=== PATIENT | male | born 1995 | race Caucasian/White ===

== ENCOUNTER 2017-11-11 11:41 | Emergency (ER) | payer SELFPAY ==
[2017-11-11 13:17] VITALS: BP 142/97; PULSE 104; RESP 20; TEMP 37.1; O2SAT 96; BMI 36.3
[2017-11-11 13:28] LABS: UTC Influenza A Antigen Negative (Negative); UTC Influenza B Antigen Negative (Negative)
--- NOTE | 2017-11-11 13:50 | HMH.EDUTC ---
[facility] [place] Disposition Clinical Impression: Cough Upper respiratory infection Qualifiers: URI type: unspecified URI Qualified Code(s): J06.9 - Acute upper respiratory infection, unspecified Disposition: Home, Self-Care Condition on Discharge: Good Instructions: Cough, Fever of Unknown Origin, DI for Nasal Congestion Additional Instructions: * Monitor Temp. Tylenol and/or Ibuprofen as needed. ER if fever is no less than 101 despite alternating Tylenol and Ibuprofen * Encourage fluids, water, Gatorade, powerade, pedialyte if /toddler/or child * Warm salt water gargles for throat irritation *Warm fluids *Sore throat lozenges *Sleep elevated *humidifier or vaporizer Lots of rest Increase fluids, water, Gatorade, powerade *Flonase 2 sprays each nostril daily but may take 2-3 days to notice improvement with it *Bromfed may cause drowsiness. Know how it effect you or your child. Before driving, caring for small children or sending your child to school *Your throat swab was sent to lab for culture. Those results area typically sent to your primary care physician. Be sure to follow up in 2-3 days if no improvement so they can review those results and treat if necessary If you dont have primary care I recommend you get one, but in the mean time you will have to return to a walk in clinic Follow up IMMEDIATELY for new or worsening of symptoms OR no noticeable improvement over the next 48-72 hours. 911 immediately for any life threatening symptoms such as chest pain or difficulty breathing Prescriptions: Azithromycin [Z-Waldo 250mg Tab] 250 mg PO UD DOSE PK #6 tab predniSONE [Prednisone 20mg Tab] 20 mg PO BID #10 tab Promethazine/Dextromethorphan [Promethazine-Dm Syrup] 5 ml PO Q4H #200 syrup Referrals: Christopher Morris MD [Primary Care Provider] - Time of Disposition: 14:04 Medical Decision Making Vital Signs: 11/11/17 13:17 Temperature 98.8 F Temperature Source Temporal Artery Scan Pulse Rate [Right] 104 H Respiratory Rate 20 Blood Pressure [Right Arm] 142/97 Blood Pressure Mean [Right Arm] 112 Blood Pressure Source [Right Arm] Automatic Cuff Blood Pressure Position [Right Arm] Sitting 02 Sat by Pulse Oximetry 96 Oxygen Delivery Method Room Air - Lab Data Lab Results 11/11/17 13:26: Influenza Type A Ag Negative, Influenza Type B Ag Negative - Dennis Inquiry Pt receiving controlled substance: No Dennis was queried for this patient: No [facility] [place] HPI - General Stated complaint: fever, side pain Mode of Arrival: Ambulatory Source of Information: Patient Limitations: No Limitations Description of Symptoms (Recalled from Triage Doc. by RN): FEVER, CONGESTION LAST NIGHT HEENT Symptoms (Recalled from RN notes): Yes Resp Symptoms (Recalled from RN notes): No Skin Symptoms (Recalled from RN notes): No MS Symptoms (Recalled from RN notes): No Functional Status (Recalled from RN notes): NA - History of Present Illness Provider Complaint: Patient state that he has had cough and congestion that has continued to get worse since yesterday and state that he is now running a fever States that he had coughed so much that he has made himself sore on his left side Onset (ago): day(s) (2) Radiation: non-radiation Severity: mild Severity scale (1-10): 2 Relieving factors: none Exacerbating factors: none Treatments prior to arrival: none - Related Data Previous Rx's Medication Instructions Recorded Azithromycin [Z-Waldo 250mg Tab] 250 mg PO UD DOSE PK #6 tab 11/11/17 Promethazine/Dextromethorphan 5 ml PO Q4H #200 syrup 11/11/17 [Promethazine-Dm Syrup] predniSONE [Prednisone 20mg 20 mg PO BID #10 tab 11/11/17 Tab] Allergies Allergy/AdvReac Type Severity Reaction Status Date / Time PENICILLIN Allergy Intermediate I-RASH Uncoded 10/27/17 14:55 - Worker's Comp Is this a Worker's Comp case?: No [facility] History - *Social History Smoking Status: Current every day smoker Tobacco Type: cigarettes Al
--- NOTE | 2017-11-11 13:55 | ED_ITS ---
[facility] [place] Disposition Clinical Impression: Cough Upper respiratory infection Qualifiers: URI type: unspecified URI Qualified Code(s): J06.9 - Acute upper respiratory infection, unspecified Disposition: Home, Self-Care Condition on Discharge: Good Instructions: Cough, Fever of Unknown Origin, DI for Nasal Congestion Additional Instructions: * Monitor Temp. Tylenol and/or Ibuprofen as needed. ER if fever is no less than 101 despite alternating Tylenol and Ibuprofen * Encourage fluids, water, Gatorade, powerade, pedialyte if /toddler/or child * Warm salt water gargles for throat irritation *Warm fluids *Sore throat lozenges *Sleep elevated *humidifier or vaporizer Lots of rest Increase fluids, water, Gatorade, powerade *Flonase 2 sprays each nostril daily but may take 2-3 days to notice improvement with it *Bromfed may cause drowsiness. Know how it effect you or your child. Before driving, caring for small children or sending your child to school *Your throat swab was sent to lab for culture. Those results area typically sent to your primary care physician. Be sure to follow up in 2-3 days if no improvement so they can review those results and treat if necessary If you don? t have primary care I recommend you get one, but in the mean time you will have to return to a walk in clinic Follow up IMMEDIATELY for new or worsening of symptoms OR no noticeable improvement over the next 48-72 hours. 911 immediately for any life threatening symptoms such as chest pain or difficulty breathing Prescriptions: Azithromycin [Z-Waldo 250mg Tab] 250 mg PO UD DOSE PK #6 tab predniSONE [Prednisone 20mg Tab] 20 mg PO BID #10 tab Promethazine/Dextromethorphan [Promethazine-Dm Syrup] 5 ml PO Q4H #200 syrup Referrals: Christopher Morris MD [Primary Care Provider] - Time of Disposition: 14:04 Medical Decision Making Vital Signs: 11/11/17 13:17 Temperature 98.8 F Temperature Source Temporal Artery Scan Pulse Rate [Right] 104 H Respiratory Rate 20 Blood Pressure [Right Arm] 142/97 Blood Pressure Mean [Right Arm] 112 Blood Pressure Source [Right Arm] Automatic Cuff Blood Pressure Position [Right Arm] Sitting 02 Sat by Pulse Oximetry 96 Oxygen Delivery Method Room Air - Lab Data Lab Results 11/11/17 13:26: Influenza Type A Ag Negative, Influenza Type B Ag Negative - Dennis Inquiry Pt receiving controlled substance: No Dennis was queried for this patient: No [facility] [place] HPI - General Stated complaint: fever, side pain Mode of Arrival: Ambulatory Source of Information: Patient Limitations: No Limitations Description of Symptoms (Recalled from Triage Doc. by RN): FEVER, CONGESTION LAST NIGHT HEENT Symptoms (Recalled from RN notes): Yes Resp Symptoms (Recalled from RN notes): No Skin Symptoms (Recalled from RN notes): No MS Symptoms (Recalled from RN notes): No Functional Status (Recalled from RN notes): NA - History of Present Illness Provider Complaint: Patient state that he has had cough and congestion that has continued to get worse since yesterday and state that he is now running a fever States that he had coughed so much that he has made himself sore on his left side Onset (ago): day(s) (2) Radiation: non-radiation Severity: mild Severity scale (1-10): 2 Relieving factors: none Exacerbating factors: none Treatments prior to arrival: none - Related Data Previous Rx's Medication Instructions Recorded
== END 2017-11-11 14:18 | disposition home or self-care (01) ==
PROVIDERS: Emergency Provider Nurse Practitioner; Family Provider Internal Medicine Adolescent Medicine; PCP Internal Medicine Adolescent Medicine
DX: J06.9 Acute upper respiratory infection, unspecified (principal); F17.210 Nicotine dependence, cigarettes, uncomplicated; Z88.0 Allergy status to penicillin
CPT/HCPCS: 87276; 87804; 99202

== ENCOUNTER 2017-11-17 19:52 | Emergency (ER) | payer SELFPAY ==
[2017-11-17 19:54] VITALS: BP 165/86; PULSE 80; RESP 16; TEMP 36.4; O2SAT 95; BMI 36.0
--- NOTE | 2017-11-17 20:05 | XR_ITS ---
XR chest 2V HISTORY: ITS.REASON: PAIN ORDERING PHYSICIAN: Riya Adams MD PATIENT AGE: 22 years COMPARISON: 09/12/2015 FINDINGS: The cardiomediastinal silhouette and pulmonary vascularity are within normal limits. Patchy density is present in the left lower lung zone not apparent on the previous exam suspicious for an area of infiltrate.. No acute bony abnormalities. IMPRESSION: Patchy density left lower lobe suspicious for an area of infiltrate
--- NOTE | 2017-11-17 20:18 | HMH.EDBACK ---
ED Disposition Clinical Impression: Thoracic back pain Qualifiers: Chronicity: acute Back pain laterality: bilateral Qualified Code(s): M54.6 - Pain in thoracic spine Disposition: Home, Self-Care Condition on Discharge: Good Instructions: Thoracic Back Pain Additional Instructions: use meds and see pcp as needed Prescriptions: predniSONE [Prednisone 20mg Tab] 20 mg PO DAILY #10 tab Referrals: Christopher Morris MD [Primary Care Provider] - - Critical Care Critical Care Time: No Attestation: On 11/17/17, the high probability of a clinically significant, sudden or life threatening deterioration of the following system(s) required my full and direct attention, intervention and personal management. The time I documented below is in addition to time spent performing reported procedures but includes the following listed in this critical care notation. Medical Decision Making - Medical Records Medical records reviewed: Yes: I reviewed the patient's medical records. Vital Signs: 11/17/17 19:54 Temperature 97.5 F L Temperature Source Oral Pulse Rate [Right Brachial] 80 Respiratory Rate 16 Blood Pressure [Right Arm] 165/86 Blood Pressure Mean [Right Arm] 112 Blood Pressure Source [Right Arm] Automatic Cuff Blood Pressure Position [Right Arm] Sitting 02 Sat by Pulse Oximetry 95 Oxygen Delivery Method Room Air - Lab Data Lab results reviewed: Yes: I reviewed the patient's lab results. Orders (Tests/Meds): ORDERS Category Date Time Status Chest XR 2 view (NOT portable) [XR chest 2V] Stat Exams 11/17/17 20:05 Taken - Radiology Data #1 Image(s): Chest Image Reviewed: Yes I reviewed the patient's radiology image Preliminary Findings: Normal/NAD - Dennis Inquiry Pt receiving controlled substance: No [facility] History I have reviewed the patient's past medical history: Yes - *Social History Smoking Status: Current every day smoker Tobacco Type: cigarettes Alcohol Intake: never - Psychiatric History Expresses thoughts of harming self/others: None Suicide Plan Description: No Plan ROS Obtained: Yes All systems reviewed & no additional complaints - Constitutional Constitutional: Denies fever(s) - Eyes Eyes: Denies change in vision - ENT Ears, Nose, Mouth, and Throat: Denies mouth lesions, Denies sore throat - Cardiovascular Cardiovascular: Denies chest pain - Respiratory Respiratory: Yes cough, No coughing up blood - Gastrointestinal Gastrointestingal: Denies: abdominal pain - Musculoskeletal Musculoskeletal: Denies joint pain, Denies joint stiffness Physical Exam - General General appearance: alert, in no apparent distress - Head Head exam: atraumatic, normocephalic - Eye Eye exam: Present: PERRL, EOMI - ENT ENT exam: Present: normal oropharynx - Neck Neck exam: Present: full ROM - Chest Chest inspection: Present: normal inspection - Respiratory Respiratory exam: Present: normal lung sounds bilaterally. Absent: respiratory distress - Cardiovascular Cardiovascular exam: Present: regular rate. Absent: systolic murmur, rubs - Abdominal Exam Abdominal exam: Present: soft - Extremities Exam Extremities exam: Present: full ROM - Back Exam Back exam: Present: full ROM. Absent: CVA tenderness (R), CVA tenderness (L) - Neurological Exam Neurological exam: Present: alert, oriented X3, CN II-XII intact - Psychiatric Psychiatric exam: Present: normal affect - Skin Skin exam: Absent: rash Back Pain HPI - General Chief Complaint: Back Pain/Injury Stated Complaint: Lungs hurt Time Seen by Provider: 11/17/17 20:18 Mode of Arrival: Ambulatory Source of Information: Patient, Relative, Medical Record Limitations: No Limitations Description of Symptoms (Recalled from ER Triage Doc. by RN): UPPER BACK PAIN FOR 2-3 WEEKS, STATES HIS LUNGS HURT - History of Present Illness HPI Narrative: pt with post thoracic pain worse with mov and deep ins
[2017-11-17 20:51] VITALS: BP 120/82; PULSE 81; RESP 18; O2SAT 100
== END 2017-11-17 20:55 | disposition home or self-care (01) ==
PROVIDERS: Emergency Provider Emergency Medicine; Family Provider Internal Medicine Adolescent Medicine; PCP Internal Medicine Adolescent Medicine
DX: M54.6 Pain in thoracic spine (principal); R07.89 Other chest pain; F17.210 Nicotine dependence, cigarettes, uncomplicated; Z88.0 Allergy status to penicillin
CPT/HCPCS: 71046; 99283

== ENCOUNTER → 2021-01-30 13:51 | Outpatient (CLI) | payer OTHER, SELFPAY ==
[2021-01-30 14:06] LABS: Chloride 110 mmol/L (98-107); Potassium 4.2 mmoL/L (3.5-5.1); Sodium 142 mmol/L (136-145)
[2021-01-30 14:08] LABS: Blood Urea Nitrogen 20 mg/dl (9-20); Estimated Glomerular Filt Rate 102 ml/min (>60); GFR (African American) 123 ML/MIN (>60)
[2021-01-30 14:09] LABS: Alanine Aminotransferase 38 U/L (12-78); Albumin Level 4.7 g/dl (3.5-5.0); Albumin/Globulin Ratio 1.8 (1.1-1.8); Alkaline Phosphatase 75 U/L (38-126); Anion Gap 13.2 mEq/L (5-15); Aspartate Amino Transferase 38 U/L (17-59); Bilirubin,Total 0.7 mg/dl (0.2-1.3); Calcium 9.4 mg/dl (8.4-10.2); Carbon Dioxide 23 mmol/L (22.0-30.0); Cholesterol 183 mg/dl (140-200); Globulin 2.6 g/dL (1.3-3.2); Glucose 112 mg/dl (74-100); Total Protein,Serum 7.3 g/dl (6.3-8.2); Triglycerides 173 mg/dl (30-150); VLDL Cholesterol 35 mg/dL (0-40)
[2021-01-30 14:10] LABS: Chol/HDL Ratio 7.6 (1-3.5); HDL Cholesterol 24 mg/dl (40-60)
[2021-01-30 14:23] LABS: Direct LDL Cholesterol 111.49 mg/dL (100-129)
[2021-01-30 14:26] LABS: 25-OH Vitamin D, Total 18.9 ng/mL (30-100)
[2021-01-30 14:31] LABS: Free T4 (Free Thyroxine) 1.55 ng/dl (0.78-2.19)
[2021-01-30 14:41] LABS: Thyroid Stimulating Hormone 2.25 uIU/mL (0.465-4.68)
[2021-01-30 15:48] LABS: Basophils % 0.5 % (0.1-2.0); Eosinophils # 0.2 K/mm3 (0.0-0.4); Eosinophils % 4.7 % (0.1-12.0); Hematocrit 52.6 % (42.0-52.0); Hemoglobin 17.9 g/dL (14.1-18.0); Lymphocytes # 1.8 K/mm3 (0.7-4.5); Lymphocytes % 39.8 % (10-50); Mean Corpuscular HGB Conc 33.9 g/dL (31.8-35.4); Mean Corpuscular Hemoglobin 29.5 pg (27.0-31.2); Mean Platelet Volume 8.6 fl (7.4-10.4); Monocytes # 0.4 K/mm3 (0.1-1.0); Monocytes % 9.7 % (1.7-9.3); Neutrophils # 2.1 K/mm3 (1.8-7.8); Neutrophils % 45.3 % (37.0-80.0); Platelet Count 155 K/mm3 (142-424); Red Blood Count 6.05 M/mm3 (4.60-6.20); Red Cell Distribution Width 13.1 % (11.5-17.5); White Blood Count 4.6 K/mm3 (4.8-10.8)
== END ==
PROVIDERS: Visit Provider Physician Assistant
DX: Z00.00 Encounter for general adult medical examination without abnormal findings (principal)
CPT/HCPCS: 80053; 80061; 82306; 84439; 84443; 85025

== ENCOUNTER 2022-10-03 21:15 | Emergency (ER) | payer OTHER, SELFPAY ==
--- NOTE | 2022-10-03 21:24 | XR_ITS ---
PROCEDURE INFORMATION: Exam: XR Chest Exam date and time: 10/03/2022 9:23 PM Age: 27 years old Clinical indication: Cough and other: Recent flu; Additional info: Cough, recent flu, pain in sternum with cough, patient vapes TECHNIQUE: Imaging protocol: Radiologic exam of the chest. Views: 2 views. COMPARISON: CR CXR2V XR chest 2V 11/17/2017 8:20 PM FINDINGS: Lungs: No consolidation. Pleural spaces: No pneumothorax. Heart/Mediastinum: No cardiomegaly. Bones/joints: No acute fracture. IMPRESSION: No acute findings.
[2022-10-03 21:44] VITALS: BP 135/94; PULSE 98; RESP 18; TEMP 38.7; O2SAT 98; BMI 31.5
--- NOTE | 2022-10-03 21:47 | HMH.EDGENADL ---
Discharge Plan Disposition Patient Disposition: Home, Self-Care Condition: Fair Prescriptions Prescriptions: New azithromycin [Zithromax] 250 mg tablet See Rx Instructions .ROUTE .COMPLEX Qty: 6 0RF Rx Instructions: For 250 mg dose pack: take 500 mg today (day 1), then 250 mg for 4 days (days 2-5) No Action phentermine [Adipex-P] 37.5 mg tablet 37.5 mg PO DAILY Qty: 30 0RF Rx Instructions: must administer 30 minutes before or 1-2 hours after breakfast diazepam [Valium] 2 mg tablet 2 mg PO TID PRN (Reason: anxiety) Qty: 20 0RF ergocalciferol (vitamin D2) 1,250 mcg (50,000 unit) capsule 1,250 mcg PO WEEKLY Qty: 5 2RF cholecalciferol (vitamin D3) 25 mcg (1,000 unit) capsule 25 mcg PO DAILY Qty: 30 2RF Vraylar 3 mg capsule 3 mg PO DAILY Qty: 30 2RF sertraline 100 mg tablet See Rx Instructions .ROUTE .COMPLEX Qty: 30 0RF Dose Instruction: Take 1 tablet by mouth once daily Rx Instructions: Take 1 tablet by mouth once daily buspirone 10 mg tablet See Rx Instructions .ROUTE .COMPLEX Qty: 180 0RF Dose Instruction: Take 1 tablet by mouth twice daily for 90 days Rx Instructions: Take 1 tablet by mouth twice daily for 90 days trazodone 50 mg tablet See Rx Instructions .ROUTE .COMPLEX Qty: 90 0RF Dose Instruction: TAKE 1 TABLET BY MOUTH AT BEDTIME Rx Instructions: TAKE 1 TABLET BY MOUTH AT BEDTIME Referrals Follow up/Referrals: Lesley Mantilla PA [Primary Care Provider] - See instructions Activity Restrictions/Add. Instructions Additional Instructions/Restrictions: You have been evaluated for cough and fever. This is likely due to atypical pneumonia after influenza infection. Please take azithromycin as prescribed. Take Tylenol and Motrin for aches and pains. Follow-up with your primary care doctor. Return to the emergency department for any new or worsening symptoms, difficulty breathing or other concerns Clinical Impressions Clinical Impression: Atypical pneumonia Instructions Patient Instructions: DI for Atypical Pneumonia Discharge ED Provider: Loreta Rodriguez Adult HPI General Chief complaint: Upper Respiratory Infection Stated complaint: flu + 09/29 cough,fever, Time Seen by Provider: 10/03/22 21:19 Mode of Arrival: Ambulatory Source of Information: Patient Limitations: No Limitations Description of Symptoms (Recalled from ER Triage Doc. by RN): pt c/o burning in chest and right rib cage for prior two days. Does report being diagnosed with the flu on Thursday. History of Present Illness HPI narrative: 27-year-old male presenting to the emergency department with cough, burning pain in the chest. Symptoms started 2 days ago, worse tonight. He has pain in the midportion of his chest, near the sternum, radiates to the right. Hurts to cough. Cough is wet, productive of greenish-white sputum. He was diagnosed with influenza 5 days ago. Has not been taking antibiotics or steroids. Does not smoke tobacco. Denies other medical problems. Related Data Previous Rx's Medication Instructions Recorded diazepam 2 mg tablet (Valium) 2 mg PO TID PRN anxiety #20 tabs 01/30/21 cholecalciferol (vitamin D3) 25 25 mcg PO DAILY #30 caps 01/31/21 mcg (1,000 unit) capsule ergocalciferol (vitamin D2) 1,250 1,250 mcg PO WEEKLY #5 caps 01/31/21 mcg (50,000 unit) capsule phentermine 37.5 mg tablet 37.5 mg PO DAILY #30 tabs 09/30/21 (Adipex-P) cariprazine 3 mg capsule (Vraylar) 3 mg PO DAILY #30 caps 12/04/21 buspirone 10 mg tablet See Rx Instructions .Route 01/21/22 .COMPLEX #180 tabs sertraline 100 mg tablet See Rx Instructions .Route 01/21/22 .COMPLEX #30 tabs trazodone 50 mg tablet See Rx Instructions .Route 01/21/22 .COMPLEX #90 tabs azithromycin 250 mg tablet See Rx Instructions PO .COMPLEX #6 10/03/22 (Zithromax) tabs Allergies Allergy/AdvReac Type Severity Reaction Status Date / Time hydroxyz
[2022-10-03 22:46] LABS: Basophils # 0.1 K/mm3 (0-0.2); Basophils % 0.8 % (0.1-2.0); Eosinophils # 0.1 K/mm3 (0.0-0.4); Eosinophils % 1.7 % (0.1-12.0); Hematocrit 44.7 % (42.0-52.0); Hemoglobin 15.5 g/dL (14.1-18.0); Lymphocytes # 1.5 K/mm3 (0.7-4.5); Lymphocytes % 25.5 % (10-50); Mean Corpuscular HGB Conc 34.5 g/dL (31.8-35.4); Mean Corpuscular Hemoglobin 29.1 pg (27.0-31.2); Mean Corpuscular Volume 84.4 fl (80-94); Mean Platelet Volume 7.7 fl (7.4-10.4); Monocytes # 0.6 K/mm3 (0.1-1.0); Monocytes % 9.3 % (1.7-9.3); Neutrophils # 3.7 K/mm3 (1.8-7.8); Neutrophils % 62.7 % (37.0-80.0); Platelet Count 151 K/mm3 (142-424); Red Cell Distribution Width 13.1 % (11.5-17.5)
[2022-10-03 22:55] LABS: Chloride 106 mmol/L (98-107); Potassium 3.6 mmoL/L (3.5-5.1); Sodium 139 mmol/L (136-145)
[2022-10-03 22:57] LABS: Alanine Aminotransferase 20 U/L (12-78); Aspartate Amino Transferase 27 U/L (17-59); Blood Urea Nitrogen 16 mg/dl (9-20); Creatinine Clearance Estimated 155 mL/min (50-200); Estimated Glomerular Filt Rate 89 ml/min (>60); GFR (African American) 108 ML/MIN (>60)
[2022-10-03 22:58] LABS: Albumin Level 3.7 g/dl (3.5-5.0); Albumin/Globulin Ratio 1.4 (1.1-1.8); Alkaline Phosphatase 71 U/L (38-126); Anion Gap 8.6 mEq/L (5-15); Bilirubin,Total 0.3 mg/dl (0.2-1.3); Calcium 8.6 mg/dl (8.4-10.2); Carbon Dioxide 28 mmol/L (22.0-30.0); Globulin 2.6 g/dL (1.3-3.2); Glucose 101 mg/dl (74-100); Lipase 40 U/L (23-300); Total Protein,Serum 6.3 g/dl (6.3-8.2)
[2022-10-03 23:13] VITALS: BP 123/78; PULSE 90; RESP 18; TEMP 37.2; O2SAT 98
== END 2022-10-03 23:16 | disposition home or self-care (01) ==
PROVIDERS: Emergency Provider Emergency Medicine; PCP Physician Assistant
DX: J18.9 Pneumonia, unspecified organism (principal)
CPT/HCPCS: 71046; 80053; 83690; 85025; 99283

== ENCOUNTER → 2023-01-27 10:44 | Outpatient (CLI) | payer OTHER, SELFPAY ==
[2023-01-27 13:39] LABS: Basophils # 0.2 K/mm3 (0-0.2); Basophils % 2.7 % (0.1-2.0); Eosinophils # 0.3 K/mm3 (0.0-0.4); Eosinophils % 4.3 % (0.1-12.0); Hematocrit 52.1 % (42.0-52.0); Lymphocytes # 1.5 K/mm3 (0.7-4.5); Lymphocytes % 24.5 % (10-50); Mean Corpuscular HGB Conc 34.5 g/dL (31.8-35.4); Mean Corpuscular Volume 83.9 fl (80-94); Mean Platelet Volume 8.2 fl (7.4-10.4); Monocytes # 0.5 K/mm3 (0.1-1.0); Monocytes % 8.4 % (1.7-9.3); Neutrophils # 3.6 K/mm3 (1.8-7.8); Platelet Count 225 K/mm3 (142-424); Red Blood Count 6.21 M/mm3 (4.60-6.20); Red Cell Distribution Width 13.4 % (11.5-17.5)
[2023-01-27 13:45] LABS: Alanine Aminotransferase 21 U/L (12-78); Albumin Level 4.9 g/dl (3.5-5.0); Anion Gap 8.3 mEq/L (5-15); Aspartate Amino Transferase 29 U/L (17-59); Bilirubin,Total 0.9 mg/dl (0.2-1.3); Blood Urea Nitrogen 14 mg/dl (9-20); Carbon Dioxide 29 mmol/L (22.0-30.0); Chloride 101 mmol/L (98-107); Estimated Glomerular Filt Rate 100 ml/min (>60); GFR (African American) 122 ML/MIN (>60); Globulin 2.7 g/dL (1.3-3.2); Glucose 91 mg/dl (74-100); Potassium 4.3 mmoL/L (3.5-5.1); Sodium 134 mmol/L (136-145); Total Protein,Serum 7.6 g/dl (6.3-8.2)
[2023-01-27 13:46] LABS: Albumin/Globulin Ratio 1.8 (1.1-1.8); Alkaline Phosphatase 75 U/L (38-126); Chol/HDL Ratio 5.1 (1-3.5); Cholesterol 167 mg/dl (140-200); HDL Cholesterol 33 mg/dl (40-60); Triglycerides 85 mg/dl (30-150); VLDL Cholesterol 17 mg/dL (0-40)
[2023-01-27 13:57] LABS: Direct LDL Cholesterol 118.02 mg/dL (100-129)
[2023-01-27 14:02] LABS: 25-OH Vitamin D, Total 33.8 ng/mL (30-100)
[2023-01-27 14:16] LABS: Thyroid Stimulating Hormone 2.71 uIU/mL (0.465-4.68)
[2023-02-05 03:38] LABS: Testosterone, Total, LC/MS 444 ng/dL (.)
== END ==
PROVIDERS: PCP Physician Assistant; Visit Provider Physician Assistant
DX: F31.9 Bipolar disorder, unspecified (principal); E66.9 Obesity, unspecified; Z68.33 Body mass index [BMI] 33.0-33.9, adult; Z79.899 Other long term (current) drug therapy
CPT/HCPCS: 80053; 80061; 82306; 84403; 84443; 85025

== ENCOUNTER 2023-02-12 19:59 | Emergency (ER) | payer OTHER, SELFPAY ==
[2023-02-12 20:00] VITALS: BP 153/88; PULSE 113; RESP 18; TEMP 36.7; O2SAT 99; BMI 34.0
[2023-02-12 20:29] LABS: Microscopic, Urine URINE MICROSCOPIC (MICROSCOPIC)
--- NOTE | 2023-02-12 20:30 | CT_ITS ---
PROCEDURE INFORMATION: Exam: CT Abdomen And Pelvis Without Contrast Exam date and time: 02/12/2023 8:48 PM Age: 27 years old Clinical indication: Abdominal pain; Flank; Right; Additional info: Abd pain radiating into testicles TECHNIQUE: Imaging protocol: Computed tomography of the abdomen and pelvis without contrast. Radiation optimization: All CT scans at this facility use at least one of these dose optimization techniques: automated exposure control; mA and/or kV adjustment per patient size (includes targeted exams where dose is matched to clinical indication); or iterative reconstruction. REPORTING DATA: Count of CT and Cardiac NM exams in prior 12 months: This patient has received 0 known CTs and 0 known cardiac nuclear medicine studies in the 12 months prior to the current study. COMPARISON: CR XR CHEST 2V 10/03/2022 9:23 PM FINDINGS: Liver: Normal. No mass. Gallbladder and bile ducts: Normal. No calcified stones. No ductal dilation. Pancreas: Normal. No ductal dilation. Spleen: Normal. No splenomegaly. Adrenal glands: Normal. No mass. Kidneys and ureters: Normal. No hydronephrosis. Stomach and bowel: Unremarkable. No obstruction. No mucosal thickening. Appendix: No evidence of appendicitis. Intraperitoneal space: Unremarkable. No free air. No significant fluid collection. Vasculature: Unremarkable. No abdominal aortic aneurysm. Lymph nodes: Unremarkable. No enlarged lymph nodes. Urinary bladder: Unremarkable as visualized. Reproductive: Unremarkable as visualized. Bones/joints: Unremarkable. No acute fracture. Soft tissues: Unremarkable. IMPRESSION: No acute findings.
[2023-02-12 20:31] LABS: Appearance,Urine CLEAR (Clear); Blood, Urine Negative (Negative); Color,Urine YELLOW (Yellow); Glucose,Urine (UA) Negative (Negative); Ketones,Urine Negative (Negative); Leukocyte Esterase,Urine Negative (Negative); Nitrate,Urine Negative (Negative); Protein,Urine Negative (Negative); Specific Gravity, Urine >= 1.030 (1.005-1.030)
--- NOTE | 2023-02-12 20:32 | PC.NURSE ---
at bedside to examine pt. reports he'd like a ct a/p wo contrast, does not want a testicular u/s at this time.
[2023-02-12 20:33] LABS: Basophils # 0.1 K/mm3 (0-0.2); Basophils % 0.7 % (0.1-2.0); Eosinophils # 0.4 K/mm3 (0.0-0.4); Hematocrit 53.4 % (42.0-52.0); Hemoglobin 17.9 g/dL (14.1-18.0); Lymphocytes # 2.6 K/mm3 (0.7-4.5); Lymphocytes % 26.5 % (10-50); Mean Corpuscular HGB Conc 33.6 g/dL (31.8-35.4); Mean Corpuscular Volume 86.2 fl (80-94); Mean Platelet Volume 7.5 fl (7.4-10.4); Monocytes # 0.6 K/mm3 (0.1-1.0); Neutrophils # 6.2 K/mm3 (1.8-7.8); Neutrophils % 62.7 % (37.0-80.0); Platelet Count 229 K/mm3 (142-424); Red Blood Count 6.19 M/mm3 (4.60-6.20); Red Cell Distribution Width 13.5 % (11.5-17.5); White Blood Count 9.9 K/mm3 (4.8-10.8)
[2023-02-12 20:36] LABS: Bilirubin,Urine 1+ (Negative)
--- NOTE | 2023-02-12 20:37 | HMH.EDUROGM ---
Discharge Plan Disposition Patient Disposition: Home, Self-Care Chief Complaint: Urogenital-Male Prescriptions Prescriptions: No Action venlafaxine [Effexor XR] 37.5 mg capsule,extended release 24hr 37.5 mg PO DAILY phentermine [Adipex-P] 37.5 mg tablet 37.5 mg PO DAILY Rx Instructions: must administer 30 minutes before or 1-2 hours after breakfast atomoxetine [Strattera] 40 mg capsule 40 mg PO DAILY Lybalvi 5-10 mg tablet 1 tab PO QHS Referrals Follow up/Referrals: Lesley Mantilla PA [Primary Care Provider] - See instructions Clinical Impressions Clinical Impression: Pain in right testicle Instructions Patient Instructions: DI for Testicular Pain Discharge ED Provider: Nicanor (ED)Brendan Male Urogenital HPI General Chief complaint: Urogenital-Male Stated complaint: testicle pain,pressure lower abd Time Seen by Provider: 02/12/23 20:30 Mode of Arrival: Ambulatory Source of Information: Patient, Spouse and Medical Record Limitations: No Limitations Description of Symptoms (Recalled from ER Triage Doc. by RN): 27 M presents with right testicular pain that radiates to his right groin and pubis area. This started approximately 2 weeks ago; however, it has continued to become worse. 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 Patient reports dysuria History of Present Illness HPI Narrative: pt with rt groin and rt testicular pain - worse today but has had over the last few days - no fever or vomiting and no dysuria 0r penile d/c or lesions MD Complaint: testicle pain and dysuria Onset (ago): day(s) Duration: intermittent Location: right testicle Severity: moderate Reports denies other symptoms Related Data Sexually active: Yes Home Medications Medication Instructions Recorded Confirmed atomoxetine 40 mg capsule 40 mg PO DAILY Mood 02/12/23 02/12/23 (Strattera) olanzapine 5 mg-samidorphan 10 mg 1 tab PO QHS Mood 02/12/23 02/12/23 tablet (Lybalvi) phentermine 37.5 mg tablet 37.5 mg PO DAILY Weight loss 02/12/23 02/12/23 (Adipex-P) venlafaxine 37.5 mg 37.5 mg PO DAILY Mood 02/12/23 02/12/23 capsule,extended release 24 hr (Effexor XR) Allergies Allergy/AdvReac Type Severity Reaction Status Date / Time hydroxyzine AdvReac Intermediate Nightmares Verified 01/27/23 09:53 PENICILLIN Allergy Intermediate I-RASH Uncoded 01/27/23 09:53 [facility] Disclaimer: The information contained in this section may have been updated after the patient was seen, as this information can be updated by other users. Medical History Anxiety Bipolar depression BMI 37.0-37.9, adult Insomnia Social History Smoking Status: Current every day smoker tobacco type: cigarettes alcohol intake: current substance use type: denies use current occupational status: employed Travel in the last 8 weeks: None ROS Obtained: Yes All systems reviewed & no additional complaints except as documented Physical Exam General General appearance: alert Head Head exam: normocephalic Eye Eye exam: Present PERRL and EOMI ENT ENT exam: Present mucous membranes moist Neck Neck exam: Present trachea midline Respiratory Respiratory exam: Absent respiratory distress Cardiovascular Cardiovascular exam: Present regular rate Abdominal Exam Abdominal exam: Present soft exam: Present circumcised and other (no hernia ); Absent testicular tenderness, urethral discharge or scrotal swelling Extremities Exam Extremities exam: Present full ROM Back Exam Back exam: Absent CVA tenderness (R) Neurological Exam Neurological exam: Present alert, oriented X3 and CN II-XII intact Skin Skin exam: Present intact Medical Decision Making Medical Records Medical records reviewed: Yes I reviewed the patient's medical records. Dennis Inquiry Pt receiving contr
[2023-02-12 20:38] LABS: Alanine Aminotransferase 27 U/L (12-78); Albumin Level 4.7 g/dl (3.5-5.0); Albumin/Globulin Ratio 1.7 (1.1-1.8); Alkaline Phosphatase 66 U/L (38-126); Amylase 69 U/L (30-110); Anion Gap 10.8 mEq/L (5-15); Aspartate Amino Transferase 31 U/L (17-59); Bilirubin,Total 0.8 mg/dl (0.2-1.3); Blood Urea Nitrogen 21 mg/dl (9-20); Calcium 8.9 mg/dl (8.4-10.2); Carbon Dioxide 26 mmol/L (22.0-30.0); Chloride 104 mmol/L (98-107); Creatinine Clearance Estimated 162 mL/min (50-200); Estimated Glomerular Filt Rate 89 ml/min (>60); GFR (African American) 108 ML/MIN (>60); Globulin 2.7 g/dL (1.3-3.2); Glucose 133 mg/dl (74-100); Lipase 65 U/L (23-300); Potassium 3.8 mmoL/L (3.5-5.1); Sodium 137 mmol/L (136-145); Total Protein,Serum 7.4 g/dl (6.3-8.2)
[2023-02-12 20:43] LABS: C-Reactive Protein 0.9 mg/L (0-4)
[2023-02-12 21:01] LABS: Bacteria,Urine 1+ /lpf; RBC,Urine Occasional #/hpf (0-3)
[2023-02-12 21:08] LABS: Erythrocyte Sedimentation Rate 1 mm/hr (0-15)
--- NOTE | 2023-02-12 21:17 | PC.NURSE ---
Rounded on pt. Pt voiced no needs or complaints at this time. Call light within reach.
[2023-02-12 21:18] VITALS: BP 131/95; PULSE 86; O2SAT 98
--- NOTE | 2023-02-12 21:41 | PC.NURSE ---
Dr. Vick at
[2023-02-12 21:47] VITALS: BP 135/96; PULSE 93; RESP 18; TEMP 36.7; O2SAT 97
[2023-02-16 08:09] LABS: Neisseria gonorrhoeae, NAA Negative (Negative)
== END 2023-02-12 21:49 | disposition home or self-care (01) ==
PROVIDERS: Emergency Provider Emergency Medicine; PCP Physician Assistant
DX: N50.811 Right testicular pain (principal)
CPT/HCPCS: 74176; 80053; 81001; 82150; 83690; 85025; 85651; 86140; 87491; 87591; 96360; 96374; 99284; 99285

== ENCOUNTER 2024-07-01 10:10 | Outpatient (CLI) | payer OTHER, SELFPAY ==
[2024-07-01 16:52] LABS: Basophils # 0.1 K/mm3 (0-0.2); Basophils % 0.6 % (0.1-2.0); Eosinophils # 0.3 K/mm3 (0.0-0.4); Eosinophils % 3.9 % (0.1-12.0); Hemoglobin 17.3 g/dL (14.1-18.0); Lymphocytes # 2.1 K/mm3 (0.7-4.5); Lymphocytes % 27.4 % (10-50); Mean Corpuscular HGB Conc 33.3 g/dL (31.8-35.4); Mean Corpuscular Hemoglobin 29.8 pg (27.0-31.2); Mean Corpuscular Volume 89.4 fl (80-94); Monocytes # 0.7 K/mm3 (0.1-1.0); Monocytes % 8.4 % (1.7-9.3); Neutrophils # 4.6 K/mm3 (1.8-7.8); Neutrophils % 59.7 % (37.0-80.0); Platelet Count 234 K/mm3 (142-424); Red Blood Count 5.82 M/mm3 (4.60-6.20); Red Cell Distribution Width 13.8 % (11.5-17.5); White Blood Count 7.8 K/mm3 (4.8-10.8)
[2024-07-01 19:03] LABS: Alanine Aminotransferase 34 U/L (12-78); Albumin Level 4.2 g/dl (3.5-5.0); Albumin/Globulin Ratio 1.4 (1.1-1.8); Alkaline Phosphatase 71 U/L (38-126); Anion Gap 14.4 mEq/L (5-15); Aspartate Amino Transferase 36 U/L (17-59); Bilirubin,Total 0.5 mg/dl (0.2-1.3); Blood Urea Nitrogen 17 mg/dl (9-20); Calcium 8.9 mg/dl (8.4-10.2); Carbon Dioxide 20 mmol/L (22.0-30.0); Chloride 109 mmol/L (98-107); Chol/HDL Ratio 5.9 (1-3.5); Cholesterol 178 mg/dl (140-200); Estimated Glomerular Filt Rate 114 ml/min (>60); GFR (African American) 137 ML/MIN (>60); Globulin 2.9 g/dL (1.3-3.2); Glucose 55 mg/dl (74-100); HDL Cholesterol 30 mg/dl (40-60); Potassium 4.4 mmoL/L (3.5-5.1); Sodium 139 mmol/L (136-145); Total Protein,Serum 7.1 g/dl (6.3-8.2); Triglycerides 101 mg/dl (30-150); VLDL Cholesterol 20 mg/dL (0-40)
[2024-07-01 19:14] LABS: Direct LDL Cholesterol 124.98 mg/dL (100-129)
[2024-07-01 19:35] LABS: Thyroid Stimulating Hormone 2.82 uIU/mL (0.465-4.68)
== END 2024-07-01 23:59 | disposition home or self-care (01) ==
LOC: LAB.DROPOF 07-04 07:17
PROVIDERS: PCP Physician Assistant; Visit Provider Physician Assistant
DX: I10 Essential (primary) hypertension (principal); Z68.33 Body mass index [BMI] 33.0-33.9, adult
CPT/HCPCS: 36415; 80050; 80053; 80061; 82306; 84443; 85025

== ENCOUNTER 2024-09-12 12:53 | Emergency (ER) | payer OTHER, SELFPAY ==
[2024-09-12 13:20] VITALS: BP 137/86; PULSE 78; RESP 18; TEMP 37; O2SAT 98; BMI 36.7
--- NOTE | 2024-09-12 13:35 | ED_ITS ---
Discharge Plan Disposition Patient Disposition: Home, Self-Care Condition: Good Prescriptions Prescriptions: New doxycycline hyclate 100 mg capsule 100 mg PO BID Qty: 20 0RF benzonatate 100 mg capsule 100 mg PO TID PRN (Reason: cough) Qty: 30 0RF methylprednisolone [Medrol (Waldo)] 4 mg tablets,dose pack See Rx Instructions .Route .COMPLEX 6 Days Qty: 21 0RF Rx Instructions: taper pack; guaifenesin [Mucinex] 1,200 mg tablet extended release 12hr 1,200 mg PO Q12H PRN (Reason: congestion) Qty: 20 0RF No Action desvenlafaxine succinate [Pristiq] 50 mg tablet extended release 24 hr 50 mg PO DAILY Qty: 30 2RF hydroxyzine HCl 25 mg tablet 25 mg PO HS Qty: 30 2RF Referrals Follow up/Referrals: Lesley Mantilla PA [Primary Care Provider] - See instructions Activity Restrictions/Add. Instructions Additional Instructions/Restrictions: * Start antibiotic today. Be sure to complete entire prescription even if feeling better * Monitor temp. Tylenol every 4 hours as needed and / or ibuprofen every 6 hours as needed ( As long as your primary care physician has told you that it ok to take both. For fever/aches/pains ER if no less than 101 despite Tylenol or Motrin * Humidifier/vaporizer or hot steamy shower * Mucinex during the day for your cough and cough suppressant only at night. Be sure to drink lots of water. *Tessalon Perles will not cause drowsiness but use at bedtime to help stop cough so that you may get some rest. *Start steroid today. Helps with inflammation therefore, cough and wheezing. Follow directions on the package. Reviewed side effects. Patient reports taking them before. Follow up IMMEDIATELY for new or worsening of symptoms OR no noticeable improvement over the next 48-72 hours. 911 immediately for any life threatening symptoms such as chest pain or difficulty breathing Clinical Impressions Clinical Impression: Sinusitis, Bronchitis Instructions Patient Instructions: DI for Sinusitis, Acute Bronchitis Print Language Print Language: Swedish Discharge ED Provider: Eneida Khalil [facility] [place] HPI General Stated complaint: congestion, sore throat, cough Mode of Arrival: Ambulatory Source of Information: Patient Limitations: No Limitations Time Seen by Provider: 09/12/24 13:35 Description of Symptoms (Recalled from Triage Doc. by RN): PATIENT C/O CONGESTION, HEADACHE, PRODUCTIVE COUGH AND SORE THROAT X 2 DAYS HEENT Symptoms (Recalled from RN notes): Yes Resp Symptoms (Recalled from RN notes): Yes Skin Symptoms (Recalled from RN notes): No MS Symptoms (Recalled from RN notes): No Functional Status (Recalled from RN notes): WNL History of Present Illness Provider Complaint: Patient states that he has been having sinus pain and pressure for over a week even his teeth feels sore, for the last couple of days feels like it is trying to move into his chest, having cough, drainage and scratchy throat so he came in to get checked Related Data Previous Rx's ?Medication ?Instructions ?Recorded desvenlafaxine succinate 50 mg 50 mg PO DAILY #30 tabs 07/01/24 tablet,extended release 24 hr (Pristiq) hydroxyzine HCl 25 mg tablet 25 mg PO HS #30 tabs 07/01/24 benzonatate 100 mg capsule 100 mg PO TID PRN cough #30 caps 09/12/24 doxycycline hyclate 100 mg capsule 100 mg PO BID #20 caps 09/12/24 guaifenesin 1,200 mg tablet, 1,200 mg PO Q12H PRN congestion 09/12/24 extended release 12 hr (Mucinex) #20 tabs methylprednisolone 4 mg tablets in See Rx Instructions .Route 09/12/24 a dose pack (Medrol (Waldo)) .COMPLEX 6 days #21 tabs Allergies Allergy/AdvReac Type Severity Reaction Status Date / Time Penicillins Allergy Unknown Verified 09/12/24 13:37 allergy reaction hydroxyzine AdvReac Intermediate Nightmares Verified 07/01/24 09:49 Worker's Comp Is this a Worker's Comp case?: No [facility] Disclaimer: The information contained in this section may have been updated after the patient was seen, as this information can be updated by other users. Medical History Anxiety Bipolar depression BMI 37.0-37.9, adult Insomnia Social History Smoking Status: Current every day smoker tobacco type: cigarettes alcohol intake: current alcohol intake frequency: holidays/special occasions only substance use type: denies use current occupational status: employed Travel in the last 8 weeks: None ROS Obtained: Yes All systems reviewed & no additional complaints except as documented and Yes Systems reviewed as appropriate & no additional complaints except as documented Constitutional Constitutional: Reports system reviewed and no additional complaints, except as documented, Reports as per HPI and Reports headache(s) ENT Ears, Nose, Mouth, and Throat: Reports system reviewed and no additional complaints, except as documented, Reports as per HPI, Reports headache(s), Reports sinus pain, Reports sinus pressure and Reports sore throat Cardiovascular Cardiovascular: Reports system reviewed and no additional complaints, except as documented and Reports as per HPI Respiratory Respiratory: Reports system reviewed and no additional complaints, except as documented, Reports as per HPI, Reports chest congestion and Reports cough Gastrointestinal Gastrointestingal: Reports system reviewed and no additional complaints, except as documented and as per HPI Neurologic Neurologic: Reports headache(s) Physical Exam General General appearance: alert and in no apparent distress ENT ENT exam: Present mucous membranes moist and TM's normal bilaterally Expanded ENT Exam Nose exam: Absent sinus tenderness Throat exam: Present other (pharyngeal erythema noted with PND) Chest Chest inspection: Present normal inspection and symmetric chest wall rise Respiratory Respiratory exam: Present normal lung sounds bilaterally; Absent respiratory distress or wheezes Cardiovascular Cardiovascular exam: Present regular rate, normal rhythm and normal heart sounds Abdominal Exam Abdominal exam: Present soft and normal bowel sounds; Absent distention or tenderness Neurological Exam Neurological exam: Present alert, oriented X3 and normal gait Medical Decision Making Medical Records Screening: Per USPSTF and CDC recommendations, given the prevalence of disease in our region, it is our hospital?s policy to screen for HIV and viral Hepatitis for all patients aged 18 and over and those with ongoing risk factors. Dennis Inquiry Pt receiving controlled substance: No Dennis was queried for this patient: No Vital Signs: 09/12/24 13:20 Temperature 98.6 F Temperature Source Oral Pulse Rate [Left Brachial] 78 Respiratory Rate 18 Blood Pressure [Left Arm] 137/86 Blood Pressure Mean [Left Arm] 103 Blood Pressure Source [Left Arm] Automatic Cuff Blood Pressure Position [Left Arm] Sitting 02 Sat by Pulse Oximetry 98 Oxygen Delivery Method Room Air
[2024-09-12 13:47] VITALS: BP 137/86; PULSE 78; RESP 18; TEMP 37; O2SAT 98
== END 2024-09-12 13:50 | disposition home or self-care (01) ==
PROVIDERS: Emergency Provider Nurse Practitioner; PCP Physician Assistant
DX: J01.90 Acute sinusitis, unspecified (principal); J40 Bronchitis, not specified as acute or chronic
CPT/HCPCS: 99213; G0381